=== PATIENT | female | born 1995 | race African-American/Black ===

== ENCOUNTER 2017-03-31 16:52 | Emergency (ER) | payer MEDICAID ==
[~2017-03-31] VITALS: Ht 162.6 cm; Wt 53.0 kg
[~2017-03-31 16:52] MED LIST: LORA2TAB PO; QUET100T4 PO; SERT50TA PO
[2017-03-31 17:32] LABS: HEMATOCRIT 38.3 % (34.6-47.8); HEMOGLOBIN 12.2 g/dL (11.7-16.4); WHITE BLOOD COUNT 5.2 x10^3/uL (3.4-10)
[2017-03-31 17:42] LABS: BLOOD UREA NITROGEN 15 mg/dL (7-18)
[2017-03-31 17:50] LABS: ACETAMINOPHEN < 2 mcg/mL (10-30)
[2017-03-31] MEDS ORDERED: MIRT30TA PO (18:37)
[2017-03-31] MEDS ORDERED: ARIP10TA33 PO (18:37)
[2017-03-31] MEDS ORDERED: OXCA300T3 PO (18:37)
[2017-03-31 19:54] LABS: DAU SCREEN DISCLAIMER
[2017-03-31 21:32] VITALS: BP 122/57
== END 2017-03-31 21:35 | disposition home or self-care (01) ==
LOC: ED 17:18
DX: F41.1 Generalized anxiety disorder (principal)
CPT/HCPCS: 36415; 80048; 80307; 80329; 82040; 84703; 85025; 99284; G0480

== ENCOUNTER 2017-04-21 16:07 | Emergency (ER) | payer MEDICAID ==
[~2017-04-21] VITALS: Ht 162.6 cm; Wt 53.6 kg
[~2017-04-21 16:07] MED LIST changes: +ARIP10TA33 PO; +MIRT30TA PO; +OXCA300T3 PO
[2017-04-21 16:08] VITALS: BP 105/71
[2017-04-21] MEDS ORDERED: KETOROLAC 30 MG/1 ML ONE (16:55)
[2017-04-21] MEDS ORDERED: KETOROLAC 30 MG/1 ML IM ONE (17:00)
[2017-04-21] MEDS ORDERED: DIAZEPAM 5 MG TABLET ONE (17:14)
[2017-04-21] MEDS ORDERED: DIAZEPAM 5 MG TABLET PO ONE (17:30)
== END 2017-04-21 17:45 | disposition home or self-care (01) ==
LOC: ED 17:20
DX: S16.1XXA Strain of muscle, fascia and tendon at neck level, initial encounter (principal); S13.4XXA Sprain of ligaments of cervical spine, initial encounter; F12.10 Cannabis abuse, uncomplicated; W19.XXXA Unspecified fall, initial encounter; Y93.89 Activity, other specified; Y99.8 Other external cause status; Y92.89 Other specified places as the place of occurrence of the external cause
CPT/HCPCS: 72050; 96372; 99284; J1885